=== PATIENT | female | born 1960 | race Caucasian/White ===

== ENCOUNTER 2018-01-17 12:06 | Emergency (ER) | payer BC ==
[2018-01-17] MEDS ORDERED: Sodium Chloride 0.9% 1,000 ML IV ONE (12:17)
[2018-01-17] MEDS ORDERED: Ondansetron 4 MG/2 ML SDV IVPUSH ONE (12:17)
[2018-01-17] MEDS ORDERED: Sodium Chloride 0.9% 10 ML Syringe FLUSH PRN (12:17)
--- NOTE | 2018-01-17 12:51 | EDM.PDOC ---
ED HPI GENERAL MEDICAL PROBLEM - General Chief Complaint: Syncope Stated Complaint: [facility] Time Seen by Provider: 01/17/18 12:08 Source of Information: Reports: Patient History Limitations: Reports: No Limitations - History of Present Illness INITIAL COMMENTS - FREE TEXT/NARRATIVE: 57-year-old female arrives via [facility] service for evaluation and treatment of injuries sustained from a fall. Reportedly the patient got off work this morning as she works nights. She went and ran some errands. She states that she developed some nausea, vomiting diarrhea. She states she had up to the bathroom was sitting on a toilet and she had a syncopal episode. Among sure how long she was out for. Unsure exactly what happened. She is currently complaining of a headache, neck pain, pain to her right clavicle and right forearm. She states she did have a bloody nose. Denies any chest pain, shortness of breath, vision changes, abdominal pain, lightheadedness, dizziness or pain in her legs. c-collar applied by EMS staff. 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 Collar Middle Posterior Neck Pain Score (Numeric/FACES): 4 - Related Data Allergies Allergy/AdvReac Type Severity Reaction Status Date / Time hydrochlorothiazide Allergy Diarrhea Verified 01/17/18 12:24 lisinopril Allergy Cough Verified 01/17/18 12:24 Home Meds: Home Meds Ondansetron [Zofran ODT] 4 mg PO Q6H PRN #15 tab.dis 01/17/18 [Rx] Ranitidine HCl [Ranitidine] 150 mg PO DAILY 01/17/18 [History] Past Medical History - Past Surgical History Female Surgical History: Reports: D&C, Tubal Ligation Social & Family History - Tobacco Use Smoking Status *Q: Current Every Day Smoker Years of Tobacco use: 40 Packs/Tins Daily: 0.5 - Caffeine Use Caffeine Use: Reports: Coffee, Soda - Recreational Drug Use Recreational Drug Use: No ED ROS GENERAL - Review of Systems Review Of Systems: See Below HEENT: Reports: Nosebleed. Denies: Vision Change Respiratory: Denies: Shortness of Breath Cardiovascular: Denies: Chest Pain GI/Abdominal: Reports: Diarrhea, Nausea, Vomiting. Denies: Abdominal Pain Musculoskeletal: Reports: Neck Pain, Arm Pain (right). Denies: Back Pain Neurological: Reports: Headache, Syncope - Physical Exam Exam: See Below Exam Limited By: No Limitations General Appearance: Alert, WD/WN, No Apparent Distress Eye Exam: Bilateral Eye: Normal Inspection, PERRL Ears: Normal External Exam, Normal Canal, Hearing Grossly Normal, Normal TMs Nose: Normal Inspection Throat/Mouth: Normal Inspection, Normal Lips, Normal Voice, No Airway Compromise Head Exam: Normocephalic, Facial Abrasions (nasal bridge) Neck: Normal Inspection, Other (pt arrived in c-collar) Respiratory/Chest: No Respiratory Distress, Lungs Clear, Normal Breath Sounds, Chest Non-Tender Cardiovascular: Normal Peripheral Pulses, Regular Rate, Rhythm, No Murmur GI/Abdominal: Normal Bowel Sounds, Soft, Non-Tender Neuro Exam (Abbreviated): Alert, Oriented, Normal Cognition Back Exam: Normal Inspection Extremities: Normal Inspection, Other (tenderness to palpation to the right clavicle; no obvious deformities to the extremities) Skin Exam: Warm, Dry, Normal Color, Ecchymosis (right mid forearm) EKG INTERPRETATION EKG Date: 01/17/18 Time: 13:45 Rhythm: NSR Rate (Beats/Min): 92 [place]: Normal P-Wave: Present QRS: Normal ST-T: Normal QT: Normal EKG Interpretation Comments: NSR at [address] segment changes. Reviewed by myself and Dr. Odell. Course - Vital Signs Last Recorded V/S: Last Vital Signs Temp 36.9 C 01/17/18 12:14 Pulse 76 01/17/18 12:14 Resp 16 01/17/18 12:14 BP 184/87 H 01/17/18 12:14 Pulse Ox 99 01/17/18 12:14 - Orders/Labs/Meds Labs: Laboratory Tests 01/17/18 01/17/18 01/17/18 Range/Units 12:25 12:25 12:25 WBC 11.86 H (3.98-10.04) K/mm3 RBC 4.75 (3.98-5.22) M/mm3 Hgb 13.6 (11.2-15.7) gm/L Hct 41.2 (34.1-44.9) % MCV 86.7 (79.4-94.8) fl MCH 28.6 (25.6-32.2) pg MCHC 33.0 (32.2-35.5) g/dl RDW Std Deviation 41.3 (36.4-46.3) fL Plt Count 161 L (182-369) K/mm3 MPV 11.2 (9.4-12.3) fl Neut % (Auto) 81.7 H (34.0-71.1) % Lymph % (Auto) 11.5 L (19.3-51.7) % Braxton % (Auto) 5.1 (4.7-12.5) % Eos % (Auto) 1.5 (0.7-5.8) Baso % (Auto) 0.1 (0.1-1.2) % Neut # (Auto) 9.70 H (1.56-6.13) K/mm3 Lymph # (Auto) 1.36 (1.18-3.74) K/mm3 Braxton # (Auto) 0.60 H (0.24-0.36) K/mm3 Eos # (Auto) 0.18 (0.04-0.36) K/mm3 Baso # (Auto) 0.01 (0.01-0.08) K/mm3 Sodium 142 (136-145) mEq/L Potassium 3.3 L (3.5-5.1) mEq/L Chloride 106 (98-107) mEq/L Carbon Dioxide 27 (21-32) mEq/L Anion Gap 12.3 (5-15) BUN 20 H (7-18) mg/dL Creatinine 0.8 (0.55-1.02) mg/dL Est Cr Clr Drug Dosing 73.51 mL/min Estimated GFR (MDRD) > 60 (>60) mL/min BUN/Creatinine Ratio 25.0 H (14-18) Glucose 128 H (74-106) mg/dL Calcium 8.8 (8.5-10.1) mg/dL Magnesium 1.8 (1.8-2.4) mg/dl Total Bilirubin 0.9 (0.2-1.0) mg/dL AST 26 (15-37) U/L ALT 33 (14-59) U/L Alkaline Phosphatase 100 (46-116) U/L Total Protein 7.1 (6.4-8.2) g/dl Albumin 3.9 (3.4-5.0) g/dl Globulin 3.2 gm/dL Albumin/Globulin Ratio 1.2 (1-2) Urine Color (Yellow) Urine Appearance (Clear) Urine pH (5.0-8.0) Ur Specific [place] (1.005-1.030) Urine Protein (Negative) Urine Glucose (UA) (Negative) Urine Ketones (Negative) Urine Occult Blood (Negative) Urine Nitrite (Negative) Urine Bilirubin (Negative) Urine Urobilinogen (0.2-1.0) Ur Leukocyte Esterase (Negative) Urine RBC (0-5) /hpf Urine WBC (0-5) /hpf Ur Epithelial Cells (0-5) /hpf Urine Bacteria (FEW) /hpf Urine Mucus (FEW) /hpf 01/17/18 Range/Units 13:15 WBC (3.98-10.04) K/mm3 RBC (3.98-5.22) M/mm3 Hgb (11.2-15.7) gm/L Hct (34.1-44.9) % MCV (79.4-94.8) fl MCH (25.6-32.2) pg MCHC (32.2-35.5) g/dl RDW Std Deviation (36.4-46.3) fL Plt Count (182-369) K/mm3 MPV (9.4-12.3) fl Neut % (Auto) (34.0-71.1) % Lymph % (Auto) (19.3-51.7) % Braxton % (Auto) (4.7-12.5) % Eos % (Auto) (0.7-5.8) Baso % (Auto) (0.1-1.2) % Neut # (Auto) (1.56-6.13) K/mm3 Lymph # (Auto) (1.18-3.74) K/mm3 Braxton # (Auto) (0.24-0.36) K/mm3 Eos # (Auto) (0.04-0.36) K/mm3 Baso # (Auto) (0.01-0.08) K/mm3 Sodium (136-145) mEq/L Potassium (3.5-5.1) mEq/L Chloride (98-107) mEq/L Carbon Dioxide (21-32) mEq/L Anion Gap (5-15) BUN (7-18) mg/dL Creatinine (0.55-1.02) mg/dL Est Cr Clr Drug Dosing mL/min Estimated GFR (MDRD) (>60) mL/min BUN/Creatinine Ratio (14-18) Glucose (74-106) mg/dL Calcium (8.5-10.1) mg/dL Magnesium (1.8-2.4) mg/dl Total Bilirubin (0.2-1.0) mg/dL AST (15-37) U/L ALT (14-59) U/L Alkaline Phosphatase (46-116) U/L Total Protein (6.4-8.2) g/dl Albumin (3.4-5.0) g/dl Globulin gm/dL Albumin/Globulin Ratio (1-2) Urine Color Yellow (Yellow) Urine Appearance Clear (Clear) Urine pH 6.0 (5.0-8.0) Ur Specific [place] 1.015 (1.005-1.030) Urine Protein Negative (Negative) Urine Glucose (UA) Negative (Negative) Urine Ketones Negative (Negative) Urine Occult Blood Negative (Negative) Urine Nitrite Negative (Negative) Urine Bilirubin Negative (Negative) Urine Urobilinogen 0.2 (0.2-1.0) Ur Leukocyte Esterase Negative (Negative) Urine RBC 0-5 (0-5) /hpf Urine WBC 0-5 (0-5) /hpf Ur Epithelial Cells 0-5 (0-5) /hpf Urine Bacteria Rare (FEW) /hpf Urine Mucus Not seen (FEW) /hpf Meds: Medications Discontinued Medications Generic Name Dose Route Start Last Admin Trade Name Freq PRN Reason Stop Dose Admin Sodium Chloride 1,000 mls @ 999 mls/hr 01/17/18 12:17 01/17/18 12:31 Normal Saline IV 01/17/18 13:17 999 mls/hr ONETIME ONE Administration Ondansetron HCl 4 mg 01/17/18 12:17 01/17/18 12:30 Zofran IVPUSH 01/17/18 12:18 4 mg ONETIME ONE Administration Sodium Chloride 10 ml 01/17/18 12:17 01/17/18 12:28 Saline Flush FLUSH 10 ml ASDIRECTED PRN Administration Keep Vein Open - Radiology Interpretation Free Text/Narrative:: CT cervical spine Technique: Multiple axial sections through the cervical spine were obtained from above C1 inferiorly through the posterior T1-2 disc. Reconstructed sagittal and coronal images were reviewed. Comparison: No prior cervical spine imaging. Findings: Moderate disc space narrowing is noted C5-6. Posterior and anterior spurring is seen as well as disc bulging with calcification within the posterior disc bulge. Prominent degenerative spurring noted at C5-6 within the uncovertebral joints. Other disc spaces are maintained. Mild to moderate bilateral neural foraminal stenosis is noted at C5-6. Other neural foramina are intact. Mild central canal stenosis suggested at C5-6. Other levels show no central canal stenosis. Vertebral bodies and posterior arches are intact with no fracture being seen. Posterior skull base is intact. No abnormal subluxation is seen. Impression: 1. Degenerative changes at C5-6 as described above. 2. Nothing acute is appreciated on CT study of the cervical spine. Head CT Technique: Multiple axial sections through the brain were obtained. Intravenous contrast was not utilized. Comparison: No previous intracranial imaging. Findings: Ventricles along with basal cisterns and sulci over the convexities are within normal limits for the patient's age. No abnormal parenchymal densities are seen. No evidence of intracranial hemorrhage. No midline shift or mass effect is seen. Bone window settings were reviewed which shows no acute calvarial abnormality. Visualized sinuses are clear. Impression: 1. Nothing acute is identified on noncontrast head CT exam. Chest: Supine view of the chest was obtained. Comparison: No prior study. Heart size and mediastinum are normal. Lungs are clear with no acute parenchymal densities. Bony structures are unremarkable. Impression: 1. Nothing acute is seen on supine chest x-ray. Right clavicle: Two views of the right clavicle were obtained. Comparison: No previous study. Minimal degenerative change is noted within the acromioclavicular joint. No fracture or other bony abnormality is seen. Impression: 1. Nothing acute is seen. Other finding as noted above. Right forearm: Two views of the right forearm were obtained. Comparison: No previous forearm exam. Degenerative change is partially visualized within the CMC joint of the thumb. No fracture or other bony abnormality is seen. Impression: 1. Incidental finding as noted above. Nothing acute is identified on two-view right forearm exam. - Re-Assessments/Exams Free Text/Narrative Re-Assessment/Exam: 01/17/18 15:22 I reviewed the labs imaging with the patient. She feels better at this time. We'll discharge home. Discharge instructions document. Departure - Departure Time of Disposition: 15:23 Disposition: Home, Self-Care 01 Condition: Fair Clinical Impression: Vasovagal syncope - Discharge Information Prescriptions: Ondansetron [Zofran ODT] 4 mg PO Q6H PRN #15 tab.dis PRN Reason: Nausea Instructions: Vasovagal Syncope, Adult Referrals: PCP,None [Primary Care Provider] - Viki Ravi [employer] [Ordering Only Provider] - Forms: ED Department Discharge Additional Instructions: Zofran 1 tab sublingual every 6 to 8 hours as needed for nausea. Clear fluids and a bland diet as tolerated. May last for more normal diet as tolerated. Follow up with family medicine next week if your symptoms have not improved much , recommend Tiffany Ravi at the [facility]. Call [phone] schedule with her. Probiotic daily. Please return to the ER if your symptoms change or worsen.
--- NOTE | 2018-01-17 13:06 | CT ---
Head CT Technique: Multiple axial sections through the brain were obtained. Intravenous contrast was not utilized. Comparison: No previous intracranial imaging. Findings: Ventricles along with basal cisterns and sulci over the convexities are within normal limits for the patient's age. No abnormal parenchymal densities are seen. No evidence of intracranial hemorrhage. No midline shift or mass effect is seen. Bone window settings were reviewed which shows no acute calvarial abnormality. Visualized sinuses are clear. Impression: 1. Nothing acute is identified on noncontrast head CT exam. Diagnostic code #1
--- NOTE | 2018-01-17 13:09 | CT ---
CT cervical spine Technique: Multiple axial sections through the cervical spine were obtained from above C1 inferiorly through the posterior T1-2 disc. Reconstructed sagittal and coronal images were reviewed. Comparison: No prior cervical spine imaging. Findings: Moderate disc space narrowing is noted C5-6. Posterior and anterior spurring is seen as well as disc bulging with calcification within the posterior disc bulge. Prominent degenerative spurring noted at C5-6 within the uncovertebral joints. Other disc spaces are maintained. Mild to moderate bilateral neural foraminal stenosis is noted at C5-6. Other neural foramina are intact. Mild central canal stenosis suggested at C5-6. Other levels show no central canal stenosis. Vertebral bodies and posterior arches are intact with no fracture being seen. Posterior skull base is intact. No abnormal subluxation is seen. Impression: 1. Degenerative changes at C5-6 as described above. 2. Nothing acute is appreciated on CT study of the cervical spine. Diagnostic code #2
--- NOTE | 2018-01-17 13:52 | CR ---
Right forearm: Two views of the right forearm were obtained. Comparison: No previous forearm exam. Degenerative change is partially visualized within the CMC joint of the thumb. No fracture or other bony abnormality is seen. Impression: 1. Incidental finding as noted above. Nothing acute is identified on two-view right forearm exam. Diagnostic code #2
--- NOTE | 2018-01-17 13:52 | CR ---
Right clavicle: Two views of the right clavicle were obtained. Comparison: No previous study. Minimal degenerative change is noted within the acromioclavicular joint. No fracture or other bony abnormality is seen. Impression: 1. Nothing acute is seen. Other finding as noted above. Diagnostic code #2
--- NOTE | 2018-01-17 13:52 | CR ---
Chest: Supine view of the chest was obtained. Comparison: No prior study. Heart size and mediastinum are normal. Lungs are clear with no acute parenchymal densities. Bony structures are unremarkable. Impression: 1. Nothing acute is seen on supine chest x-ray. Diagnostic code #1
== END 2018-01-17 15:35 | disposition home or self-care (01) ==
LOC: JD.ED 12:06
DX: R55 Syncope and collapse (principal); F17.210 Nicotine dependence, cigarettes, uncomplicated; Z79.899 Other long term (current) drug therapy; Z88.8 Allergy status to other drugs, medicaments and biological substances
CPT/HCPCS: 36415; 70450; 71045; 72125; 73000; 73090; 80053; 81001; 83735; 85025; 93005; 96361; 96374; 99285; J2405; J7040; J7050; 93010; 99284

== ENCOUNTER 2019-08-20 05:36 | Emergency (ER) | payer BC ==
[2019-08-20] MEDS ORDERED: FLU Vacc QS2019-20(6MOS+)/PF 60 MCG/0.5 ML SYRINGE IM ONE (06:30)
--- NOTE | 2019-08-20 06:49 | EDM.PDOC ---
ED HPI GENERAL MEDICAL PROBLEM - General Chief Complaint: Lower Extremity Injury/Pain Stated Complaint: fall Time Seen by Provider: 08/20/19 06:30 Source of Information: Reports: Patient History Limitations: Reports: No Limitations - History of Present Illness INITIAL COMMENTS - FREE TEXT/NARRATIVE: 58 yo F with R ankle pain/swelling. She was walking down steps, missed a step, fell and twisted R ankle. Has been able to take a few steps but has severe pain in R lateral ankle area. +swollen. No additional injury. No knee pain. Minimal pain while at rest. Pain is severe with weight bearing. Hasn't taken any meds this morning for pain. Right Ankle Pain Score (Numeric/FACES): 4 - Related Data Allergies Allergy/AdvReac Type Severity Reaction Status Date / Time hydrochlorothiazide AdvReac Diarrhea Verified 08/20/19 06:09 lisinopril AdvReac Cough Verified 08/20/19 06:09 Home Meds: Home Meds Ondansetron [Zofran ODT] 4 mg PO Q6H PRN #15 tab.dis 01/17/18 [Rx] Ranitidine HCl [Ranitidine] 150 mg PO DAILY 01/17/18 [History] Ibuprofen 600 mg PO QID PRN #40 tablet 08/20/19 [Rx] Losartan Potassium 100 mg PO DAILY 08/20/19 [History] amLODIPine Besylate [Amlodipine Besylate] 0 mg PO DAILY 08/20/19 [History] Past Medical History Cardiovascular History: Reports: High Cholesterol, Hypertension - Past Surgical History Female Surgical History: Reports: D&C, Tubal Ligation Social & Family History - Family History Family Medical History: Noncontributory - Tobacco Use Smoking Status *Q: Never Smoker - Caffeine Use Caffeine Use: Reports: Coffee, Soda Review of Systems - Review of Systems Review Of Systems: See Below Constitutional: Reports: No Symptoms Respiratory: Reports: No Symptoms Cardiovascular: Reports: No Symptoms GI/Abdominal: Reports: No Symptoms Musculoskeletal: Reports: Leg Pain Skin: Reports: Bruising Neurological: Reports: No Symptoms ED EXAM, GENERAL - Physical Exam Exam: See Below Exam Limited By: No Limitations General Appearance: Alert, WD/WN, No Apparent Distress Eye Exam: Bilateral Eye: Normal Inspection Ears: Normal External Exam Nose: Normal Inspection Throat/Mouth: Normal Inspection, Normal Voice Head: Atraumatic, Normocephalic Neck: Normal Inspection Respiratory/Chest: No Respiratory Distress Peripheral Pulses: 2+: Dorsalis Pedis (R) Extremities: Other (RLE: No knee pain or swelling, no fibular head TTP, no mid tib/fib TTP, + R lateral ankle swelling, moderate, diffusely tender, foot warm and well perfused, no foot TTP/swelling, distal motor/sensation/perfusion intact ) Course - Vital Signs Last Recorded V/S: Last Vital Signs Temp 36.3 C 08/20/19 06:07 Pulse 81 08/20/19 06:07 Resp 18 08/20/19 06:07 BP 128/66 08/20/19 06:07 Pulse Ox 100 08/20/19 06:07 - Orders/Labs/Meds Orders: Active Orders 24 hr Category Date Time Status Influenza Vaccine Charge [RC] .DISCHARGE Care 08/20/19 06:24 Active Ankle Min 3V Rt [CR] Stat Exams 08/20/19 06:08 Taken DME for Discharge [COMM] Stat Oth 08/20/19 06:38 Ordered Meds: Medications Discontinued Medications Generic Name Dose Route Start Last Admin Trade Name Freq PRN Reason Stop Dose Admin Influenza Virus Vaccine 1 each 08/20/19 06:23 Pharmacy To Dose - Influenza Vaccine IM 08/20/19 06:24 ONETIME ONE Influenza Virus Vaccine 60 mcg 08/20/19 06:30 Fluzone Quad [id number] Syringe IM 08/20/19 06:31 .ONCE ONE - Re-Assessments/Exams Free Text/Narrative Re-Assessment/Exam: 08/20/19 06:47 XR R ankle shows no bony deformity. Will treat for sprain with airsplint/ crutches. Declined pain meds at this time. Departure - Departure Time of Disposition: 06:48 Disposition: Home, Self-Care 01 Clinical Impression: Moderate right ankle sprain Qualifiers: Encounter type: initial encounter Qualified Code(s): S93.401A - Sprain of unspecified ligament of right ankle, initial encounter - Discharge Information Prescriptions: Ibuprofen 600 mg PO QID PRN #40 tablet PRN Reason: Pain Referrals: Shruthi Alvarado, [facility] [Primary Care Provider] - Additional Instructions: 1. Elevate ankle when possible. Ice on and off today and tomorrow. 2. Wear velcro splint for comfort. Use crutches until you can walk without significant pain or limping. 3. Follow up with your regular doctor in about a week. Return to the ED as needed. - My Orders Last 24 Hours: My Active Orders 08/20/19 06:08 Ankle Min 3V Rt [CR] Stat 08/20/19 06:24 Influenza Vaccine Charge [RC] .DISCHARGE 08/20/19 06:38 DME for Discharge [COMM] Stat - Assessment/Plan Last 24 Hours: My Active Orders 08/20/19 06:08 Ankle Min 3V Rt [CR] Stat 08/20/19 06:24 Influenza Vaccine Charge [RC] .DISCHARGE 08/20/19 06:38 DME for Discharge [COMM] Stat
--- NOTE | 2019-08-20 07:28 | CR ---
Right ankle: Four views of the right ankle were obtained. Comparison: No prior ankle exam. Soft tissue swelling is identified. Ankle mortise is symmetric. Minimal calcifications off the inferior fibula are seen most likely due to minimal cortical avulsion injuries. No additional fracture or other abnormality is seen. Impression: 1. Soft tissue swelling. 2. Minimal calcifications as noted above most likely representing minimal cortical avulsion fractures off the inferior fibula. Diagnostic code #3
== END 2019-08-20 07:06 | disposition home or self-care (01) ==
LOC: JD.ED 05:36
DX: S93.401A Sprain of unspecified ligament of right ankle, initial encounter (principal); E78.00 Pure hypercholesterolemia, unspecified; I10 Essential (primary) hypertension; Z79.899 Other long term (current) drug therapy; Z88.8 Allergy status to other drugs, medicaments and biological substances; Z23 Encounter for immunization; W10.9XXA Fall (on) (from) unspecified stairs and steps, initial encounter; X50.1XXA Overexertion from prolonged static or awkward postures, initial encounter; Y93.01 Activity, walking, marching and hiking
CPT/HCPCS: 73610-26-RT; 73610-RT; 90471; 90686; 99283; 99283-25; G0008

== ENCOUNTER 2019-12-05 08:32 | Emergency (ER) | payer BC ==
--- NOTE | 2019-12-05 09:24 | EDM.PDOC ---
ED HPI GENERAL MEDICAL PROBLEM - General Chief Complaint: Chest Pain Stated Complaint: HIGH BP/CHEST PAIN/COUGH Time Seen by Provider: 12/05/19 08:46 Source of Information: Reports: Patient History Limitations: Reports: No Limitations - History of Present Illness INITIAL COMMENTS - FREE TEXT/NARRATIVE: The patient presents with some chest pain. 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 She laid down to go to bed and then developed some pressure in her mid chest that went up into her neck and left arm. This lasted a few minutes and it happened 3 times. The pain is gone now. She had no shortness of breath with it. She has never had this before. She has no history of coronary artery disease but she does have a history of hypertension and hypercholesterolemia. Her blood pressure was very high this morning at 199 systolic. That is down now to 138 systolic. She does not smoke. She has a cough for the past couple weeks but no fever or chills. She has no abdominal pain, nausea or vomiting. She has a family history of heart disease on her father's side. She has some mild edema to the right leg that is normal for her after breaking her leg in the past year. Onset: Sudden Duration: Hour(s): Location: Reports: Chest Quality: Reports: Pressure Severity: Mild Improves with: Reports: None Worsens with: Reports: None Associated Symptoms: Reports: Chest Pain. Denies: Cough, Fever/Chills, Headaches, Nausea/Vomiting, Shortness of Breath - Related Data Allergies Allergy/AdvReac Type Severity Reaction Status Date / Time hydrochlorothiazide AdvReac Diarrhea Verified 12/05/19 08:40 lisinopril AdvReac Cough Verified 12/05/19 08:40 Home Meds: Home Meds Ondansetron [Zofran ODT] 4 mg PO Q6H PRN #15 tab.dis 01/17/18 [Rx] Ranitidine HCl [Ranitidine] 150 mg PO DAILY 01/17/18 [History] Ibuprofen 600 mg PO QID PRN #40 tablet 08/20/19 [Rx] Losartan Potassium 50 mg PO BID 08/20/19 [History] amLODIPine Besylate [Amlodipine Besylate] 10 mg PO DAILY 08/20/19 [History] Cholecalciferol (Vitamin D3) [Vitamin D3] 0 intlu PO DAILY 12/05/19 [History] Lutein 20 mg PO DAILY 12/05/19 [History] [place]-3/DHA/Epa/Fish Oil [Fish Oil 1,000 mg Softgel] 1,000 mg PO DAILY 12/05/19 [History] Past Medical History HEENT History: Reports: Impaired Vision, Other (See Below) Other HEENT History: wears eyeglasses. Infected gland to neck. Cardiovascular History: Reports: High Cholesterol, Hypertension Respiratory History: Reports: Pneumonia, Recurrent Gastrointestinal History: Reports: GERD Genitourinary History: Reports: Pyelonephritis, UTI, Recurrent PATIENT RELATIONS LIAISON History: Reports: , Other (See Below) Other PATIENT RELATIONS LIAISON History: cervical dysplagia. Musculoskeletal History: Reports: Fracture Neurological History: Reports: Headaches, Chronic Psychiatric History: Reports: Addiction Other Psychiatric History: smoking Hematologic History: Reports: Anemia - Infectious Disease History Infectious Disease History: Reports: Chicken Pox, Measles, Mumps - Past Surgical History Female Surgical History: Reports: D&C, Tubal Ligation Other Female Surgeries/Procedures: retained placenta Social & Family History - Family History Family Medical History: Noncontributory - Tobacco Use Smoking Status *Q: Current Every Day Smoker Years of Tobacco use: 40 Packs/Tins Daily: 0.5 Second Hand Smoke Exposure: No - Caffeine Use Caffeine Use: Reports: Soda - Recreational Drug Use Recreational Drug Use: No ED ROS GENERAL - Review of Systems Review Of Systems: See Below Constitutional: Reports: No Symptoms HEENT: Reports: No Symptoms Respiratory: Reports: No Symptoms Cardiovascular: Reports: Chest Pain Endocrine: Reports: No Symptoms GI/Abdominal: Reports: No Symptoms : Reports: No Symptoms Musculoskeletal: Reports: No Symptoms ED EXAM, GENERAL - Physical Exam Exam: See Below Exam Limited By: No Limitations General Appearance: Alert, No Apparent Distress Ears: Normal External Exam Nose: Normal Inspection Head: Atraumatic, Normocephalic Neck: Normal Inspection Respiratory/Chest: No Respiratory Distress, Lungs Clear, Normal Breath Sounds Cardiovascular: Regular Rate, Rhythm, No Edema, Systolic Murmur GI/Abdominal: Soft, Non-Tender, No Organomegaly, No Mass Back Exam: Normal Inspection Extremities: Normal Inspection EKG INTERPRETATION EKG Date: 12/05/19 Time: 08:45 Rhythm: NSR Rate (Beats/Min): 73 [place]: Normal P-Wave: Present QRS: Normal ST-T: Normal QT: Normal Course - Vital Signs Last Recorded V/S: Last Vital Signs Temp 97.9 F 12/05/19 08:36 Pulse 80 12/05/19 08:36 Resp 18 12/05/19 08:36 BP 142/79 H 12/05/19 08:36 Pulse Ox 99 12/05/19 08:36 - Orders/Labs/Meds Orders: Active Orders 24 hr Category Date Time Status Cardiac Monitoring [RC] . DIRECTED Care 12/05/19 09:06 Active Labs: Laboratory Tests 12/05/19 12/05/19 12/05/19 Range/Units 09:15 09:15 09:15 WBC 7.51 (3.98-10.04) K/mm3 RBC 4.19 (3.98-5.22) M/mm3 Hgb 12.4 (11.2-15.7) gm/dl Hct 36.7 (34.1-44.9) % MCV 87.6 (79.4-94.8) fl MCH 29.6 (25.6-32.2) pg MCHC 33.8 (32.2-35.5) g/dl RDW Std Deviation 41.3 (36.4-46.3) fL Plt Count 198 (182-369) K/mm3 MPV 11.0 (9.4-12.3) fl Neut % (Auto) 54.2 (34.0-71.1) % Lymph % (Auto) 38.5 (19.3-51.7) % [place] % (Auto) 4.4 L (4.7-12.5) % Eos % (Auto) 2.4 (0.7-5.8) Baso % (Auto) 0.4 (0.1-1.2) % Neut # (Auto) 4.07 (1.56-6.13) K/mm3 Lymph # (Auto) 2.89 (1.18-3.74) K/mm3 [place] # (Auto) 0.33 (0.24-0.36) K/mm3 Eos # (Auto) 0.18 (0.04-0.36) K/mm3 Baso # (Auto) 0.03 (0.01-0.08) K/mm3 D-Dimer, Quantitative 0.23 (0.19-0.50) mg/L Sodium 143 (136-145) mEq/L Potassium 3.2 L (3.5-5.1) mEq/L Chloride 106 (98-107) mEq/L Carbon Dioxide 26 (21-32) mEq/L Anion Gap 14.2 (5-15) BUN 18 (7-18) mg/dL Creatinine 0.7 (0.55-1.02) mg/dL Est Cr Clr Drug Dosing 83.01 mL/min Estimated GFR (MDRD) > 60 (>60) mL/min BUN/Creatinine Ratio 25.7 H (14-18) Glucose 104 (74-106) mg/dL Calcium 8.9 (8.5-10.1) mg/dL Total Bilirubin 0.5 (0.2-1.0) mg/dL AST 19 (15-37) U/L ALT 30 (14-59) U/L Alkaline Phosphatase 99 (46-116) U/L Troponin I < 0.017 (0.00-0.056) ng/mL Total Protein 7.0 (6.4-8.2) g/dl Albumin 3.8 (3.4-5.0) g/dl Globulin 3.2 gm/dL Albumin/Globulin Ratio 1.2 (1-2) - Re-Assessments/Exams Free Text/Narrative Re-Assessment/Exam: 12/05/19 09:27 I ordered an EKG, CXR, and labs. Her EKG shows a NSR with no acute changes. 12/05/19 10:29 Her CXR looks good. Her CBC and CMP look good. Her troponin and D-dimer were negative. I will discharge her home. Departure - Departure Time of Disposition: 10:30 Disposition: Home, Self-Care 01 Condition: Good Clinical Impression: Atypical chest pain Referrals: Shruthi Alvarado ABATTO[employer] SUPERVISOR [Primary Care Provider] - 1 Week Forms: ED Department Discharge Additional Instructions: Take your medication as prescribed. Follow up with Shruthi with a week. Please return if you are worse. Sepsis Event Note - Evaluation Sepsis Screening Result: No Definite Risk - Focused Exam Vital Signs: Vital Signs Temp Pulse Resp BP Pulse Ox 12/05/19 08:36 97.9 F 80 18 142/79 H 99 Date Exam was Performed: 12/05/19 Time Exam was Performed: 10:29 - My Orders Last 24 Hours: My Active Orders 12/05/19 09:06 Cardiac Monitoring [RC] . DIRECTED - Assessment/Plan Last 24 Hours: My Active Orders 12/05/19 09:06 Cardiac Monitoring [RC] . DIRECTED
--- NOTE | 2019-12-05 09:57 | CR ---
Chest: 2 views of the chest were obtained. Comparison: Prior chest x-ray of 01/17/18. Heart size appears within normal limits. Upper mediastinum is within normal limits. Lungs show no acute parenchymal change. Bony structures shows minimal scoliosis within the spine. No acute osseous finding is seen. Impression: 1. Nothing acute is appreciated on 2 view chest x-ray. Diagnostic code #2 This report was dictated in [place] Standard Time
== END 2019-12-05 10:42 | disposition home or self-care (01) ==
LOC: JD.ED 08:32
DX: R07.89 Other chest pain (principal); F17.210 Nicotine dependence, cigarettes, uncomplicated; I10 Essential (primary) hypertension; E78.00 Pure hypercholesterolemia, unspecified; Z79.899 Other long term (current) drug therapy; Z88.8 Allergy status to other drugs, medicaments and biological substances
CPT/HCPCS: 36415; 71046; 71046-26; 80053; 84484; 85025; 85379; 93010; 99282; 99285-25

== ENCOUNTER 2020-11-23 22:31 | Emergency (ER) | payer BC ==
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
== END 2020-11-23 23:31 | disposition home or self-care (01) ==
LOC: JD.ED 22:31
DX: S80.12XA Contusion of left lower leg, initial encounter (principal); S80.11XA Contusion of right lower leg, initial encounter; I10 Essential (primary) hypertension; Z88.8 Allergy status to other drugs, medicaments and biological substances; Z79.899 Other long term (current) drug therapy; Z87.891 Personal history of nicotine dependence; W22.8XXA Striking against or struck by other objects, initial encounter
CPT/HCPCS: 99283